=== PATIENT | female | born 1980 | race African-American/Black ===

== ENCOUNTER 2021-02-14 15:44 | Outpatient (CLI) | payer BC ==
[2021-02-14 11:29] VITALS: BMI 46.9
== END 2021-02-14 15:45 | disposition home or self-care (01) ==
LOC: DTY/OP 15:44
PROVIDERS: ATTEND Surgery
DX: G47.33 Obstructive sleep apnea (adult) (pediatric) (principal); M17.0 Bilateral primary osteoarthritis of knee; Z68.41 Body mass index [BMI] 40.0-44.9, adult
CPT/HCPCS: 97802

== ENCOUNTER 2021-03-08 19:30 | Outpatient (CLI) | payer BC | END 2021-03-08 19:31 | disposition home or self-care (01) | LOC: SLEEPLAB 19:30 | PROVIDERS: ATTEND Surgery | DX: G47.33 Obstructive sleep apnea (adult) (pediatric) (principal); E66.9 Obesity, unspecified; Z68.42 Body mass index [BMI] 45.0-49.9, adult | CPT/HCPCS: 95810 ==

== ENCOUNTER 2021-07-28 08:02 | Outpatient (CLI) | payer BC ==
[2021-07-28 16:49] LABS: SARS-CoV-2 PCR by NAA Not Detected (NotDetected)
== END 2021-07-28 08:03 | disposition home or self-care (01) ==
LOC: LABBT 08:02
PROVIDERS: ATTEND Surgery
DX: Z01.812 Encounter for preprocedural laboratory examination (principal); G47.33 Obstructive sleep apnea (adult) (pediatric); K44.9 Diaphragmatic hernia without obstruction or gangrene; E66.01 Morbid (severe) obesity due to excess calories; Z68.41 Body mass index [BMI] 40.0-44.9, adult; Z20.822 Contact with and (suspected) exposure to COVID-19
CPT/HCPCS: U0003; U0005

== ENCOUNTER 2021-07-28 08:45 | Inpatient (IN) | payer BC ==
[2021-07-28 10:37] VITALS: BMI 46.9
[2021-08-01] MEDS ORDERED: Midazolam HCl 2 mg/2 ml Vial ONE (08:09)
[2021-08-01] MEDS ORDERED: Fentanyl 250 MCG/5 ML VIAL ONE ×3 (08:09→12:12)
[2021-08-01] MEDS ORDERED: Scopolamine 1.5 mg/72 hour Patch ONE (08:23)
[2021-08-01] MEDS ORDERED: Enoxaparin Sodium 40 MG/0.4 ML SYRINGE ONE (08:25)
[2021-08-01] MEDS ORDERED: Bupivacaine 0.25% HCL 30 ML VIAL ONE (09:44)
[2021-08-01] MEDS ORDERED: Xylocaine 1% w/ Epi 1:100K 10 ML VIAL ONE (09:44)
[2021-08-01] MEDS ORDERED: Ondansetron PF 4 MG/2 ML Vial IVP PRN (09:45)
[2021-08-01] MEDS ORDERED: Hydrocodone-Acetamin 15 ML UDCUP PO PRN (09:45)
[2021-08-01] MEDS ORDERED: hydrALAZINE 20 MG/ML VIAL SLOW IVP PRN (09:45)
[2021-08-01] MEDS ORDERED: Dextrose 5% in Water 1,000 ML IV PRN (09:45)
[2021-08-01] MEDS ORDERED: Dextrose 50% Abboject 50 ML SYRINGE SLOW IVP PRN (09:45)
[2021-08-01] MEDS ORDERED: diphenhydrAMINE 50 MG/ML VIAL IVP PRN (09:45)
[2021-08-01] MEDS ORDERED: cefOXitin 2 GM VIAL ONE (10:00)
[2021-08-01] MEDS ORDERED: Ondansetron PF 4 MG/2 ML Vial ONE ×2 (10:10→13:02)
[2021-08-01] MEDS ORDERED: Glycopyrrolate 0.2 MG/ML 5 ML SYRINGE ONE (10:10)
[2021-08-01] MEDS ORDERED: Rocuronium Bromide 10 MG/ML (10ML VIAL) ONE (10:10)
[2021-08-01] MEDS ORDERED: PROPOFOL 200 MG/20 ML VIAL ONE (10:10)
[2021-08-01] MEDS ORDERED: Lidocaine 1% PF 5 ML VIAL ONE (10:10)
[2021-08-01] MEDS ORDERED: Dexamethasone 20 MG/5 ML VIAL ONE (10:10)
[2021-08-01] MEDS ORDERED: Morphine 4 MG/ML VIAL SLOW IVP PRN (10:15)
[2021-08-01] MEDS ORDERED: Ketorolac Tromethamine 30 MG/ML VIAL IVP SCH (12:00)
[2021-08-01] MEDS ORDERED: Promethazine HCl 25 MG/ML VIAL IVPB PRN (12:09)
[2021-08-01] MEDS ORDERED: Ondansetron HCl/PF 4 MG/2 ML Vial IVP PRN (12:09)
[2021-08-01] MEDS ORDERED: Ketorolac Tromethamine 30 MG/ML VIAL IVP PRN (12:09)
[2021-08-01] MEDS ORDERED: Promethazine HCl 25 MG/ML VIAL IM PRN (12:09)
[2021-08-01] MEDS ORDERED: Promethazine HCl 25 MG/ML VIAL ONE (13:14)
[2021-08-01] MEDS: Ketorolac Tromethamine 30 MG/ML VIAL IVP SCH ×2 (14:28→20:24)
[2021-08-01] MEDS: D5 1/2 NS w/20 mEq KCL 1,000 ML IV SCH ×3 (14:29→23:10)
[2021-08-01] MEDS: Promethazine HCl 25 MG/ML VIAL IM PRN ×2 (15:19→18:38)
[2021-08-01] MEDS ORDERED: FLU VACC QS2021-22(6MOS UP)/PF 60 MCG/0.5 ML SYRINGE IM ONE (17:00)
[2021-08-02] MEDS: Ketorolac Tromethamine 30 MG/ML VIAL IVP SCH ×3 (04:08→16:36)
[2021-08-02 05:44] LABS: #Lymphocytes 1.1 thou/uL (1.20-3.40); #Monocytes 0.6 thou/uL (0.11-0.59); %Basophils 0.1 % (0.0-1.0); %Eosinophils 0.2 % (0.0-10.0); %Lymphocytes 12.8 % (21.0-51.0); %Monocytes 7.2 % (0.0-10.0); %Neutrophils 79.7 % (42.0-75.0); Hemoglobin 12.4 g/dL (12.0-16.0); Mean Corpuscular HGB CONC 34.7 g/dL (32.0-36.0); Mean Corpuscular Hemoglobin 29.2 pg (27.0-31.0); Mean Corpuscular Volume 84.1 fL (78.0-98.0); Mean Platelet Volume 7.4 fL (7.4-10.4); Platelet Count 205 thou/uL (130-400); RBC Distribution Width 12.8 % (11.5-14.5); Red Blood Cell (RBC) Count 4.23 mill/uL (4.20-5.40); White Blood Cell (WBC) Count 8.8 thou/uL (4.8-10.8)
[2021-08-02 06:12] LABS: Anion Gap 8 mmol/L (10-20); BUN (Urea Nitrogen) 7 mg/dL (7.0-18.7); Calc. Creatinine Clearance 208 mL/min (70-130); Calcium 8.3 mg/dL (7.8-10.44); Carbon Dioxide 27 mmol/L (22-29); Chloride 107 mmol/L (98-107); Glucose 104 mg/dL (70-105); Potassium 4.8 mmol/L (3.5-5.1); Sodium 137 mmol/L (136-145)
[2021-08-02] MEDS: D5 1/2 NS w/20 mEq KCL 1,000 ML IV SCH (06:27)
[2021-08-02 08:34] VITALS: TEMP 98.6
[2021-08-02] MEDS ORDERED: Enoxaparin Sodium 40 MG/0.4 ML SYRINGE SC SCH (09:00)
[2021-08-02] MEDS ORDERED: Pantoprazole 40 MG VIAL IVP SCH (09:00)
[2021-08-02 16:29] VITALS: BP 133/88
== END 2021-08-02 17:35 | disposition home or self-care (01) | DRG 621 ==
LOC: SURG A 08-01 07:26
PROVIDERS: ADMIT Surgery; ATTEND Surgery
PROC: 0DB64Z3 Excision of Stomach, Percutaneous Endoscopic Approach, Vertical (ICD-10-PCS; principal; 2021-08-01)
PROC: 8E0W4CZ Robotic Assisted Procedure of Trunk Region, Percutaneous Endoscopic Approach (ICD-10-PCS; 2021-08-01)
DX: E66.01 Morbid (severe) obesity due to excess calories (principal); Z68.42 Body mass index [BMI] 45.0-49.9, adult; Z20.822 Contact with and (suspected) exposure to COVID-19; G47.33 Obstructive sleep apnea (adult) (pediatric); M19.90 Unspecified osteoarthritis, unspecified site; Z90.49 Acquired absence of other specified parts of digestive tract; Z79.899 Other long term (current) drug therapy
CPT/HCPCS: 36415; 80048; 85025; 88307; 94760; C9113; J0694; J1100; J1650; J1885; J2250; J2405; J2550; J2704; J3010; J3480; S0020